=== PATIENT | female | born 1945 | race Caucasian/White ===

== ENCOUNTER → 2016-10-11 | Outpatient (CLI) | payer MEDICARE, OTHER ==
[~2016-10-11] MED LIST: CHOL2000 PO; CYAN50008 PO; DEXL60CA PO; DULO30CA2 PO; DULO60CA7 PO; FENTANYL PF 100 MCG/2ML ONE; HYDR-3138 PO; HYDR25TA11 PO; HYDR25TA6 PO; LATA2.5D3 EACHEYE; LORA0.5T PO; METF500T4 PO; METH750T87 PO; MOME17SP INH; MONT10TA9 PO; MULT-658 PO; OXYcodone 5 MG/5 ML ORAL.SOL UDC ONE; PANT40TA5 PO; TIMO5DRO5 RIGHTEYE; VALS1TAB22 PO; VALS80TA3 PO; ZOLP10TA PO; [UNRECOGNIZED DRUG - OTHER] TP
[2016-10-11 15:01] LABS: ASPARTATE AMINO TRANSFERASE 17 U/L (15-37); BLOOD UREA NITROGEN 14 mg/dL (7-18)
== END | disposition home or self-care (01) ==
LOC: STAR 13:28
PROVIDERS: ATTEND Urology
DX: Z01.818 Encounter for other preprocedural examination (principal); C67.9 Malignant neoplasm of bladder, unspecified; R82.99 Other abnormal findings in urine
CPT/HCPCS: 36415; 80053; 81001; 85025; 87086; 93005

== ENCOUNTER 2016-10-16 13:51 | Day surgery (SDC) | payer MEDICARE, OTHER ==
[~2016-10-16] VITALS: Ht 151.1 cm; Wt 69.5 kg
[~2016-10-16 13:51] MED LIST changes: -FENTANYL PF 100 MCG/2ML ONE; +ONDANSETRON 2MG/ML, 2ML ONE; -OXYcodone 5 MG/5 ML ORAL.SOL UDC ONE; +PROPOFOL 10 MG/ML, 20ML ONE; +ROCURONIUM 10 MG/ML ONE
[2016-10-16] MEDS ORDERED: SODIUM CHLORIDE 0.9% INTVESIC ONE (14:00)
[2016-10-16] MEDS ORDERED: MITOMYCIN INTVESIC ONE (14:00)
[2016-10-16] MEDS ORDERED: LACTATED RINGERS 1,000 ML IV SCH (14:13)
[2016-10-16 14:36] VITALS: BP 146/85
[2016-10-16] MEDS ORDERED: FENTANYL PF 100 MCG/2ML ONE (16:00)
[2016-10-16] MEDS ORDERED: LABETALOL 5MG/ML, 20ML IV PRN (16:30)
[2016-10-16] MEDS ORDERED: ONDANSETRON 2MG/ML, 2ML IVPush PRN (16:30)
[2016-10-16] MEDS ORDERED: HYDROmorphone 1 MG/ML, 1ML IV PRN (16:30)
[2016-10-16] MEDS ORDERED: PROMETHAZINE 25 MG/ML, 1ML IV PRN (16:30)
[2016-10-16] MEDS ORDERED: hydrALAzine 20 MG/ML, 1ML IV PRN (16:30)
[2016-10-16] MEDS ORDERED: FENTANYL PF 100 MCG/2ML IV PRN (16:30)
[2016-10-16] MEDS ORDERED: OXYcodone 5 MG/5 ML ORAL.SOL UDC PO PRN (16:30)
[2016-10-16] MEDS ORDERED: FLUORESCEIN SODIUM 500 MG/5 ML ONE (16:55)
[2016-10-16] MEDS ORDERED: OMNIPAQUE 350 MG/ML, 50 ML BOTTLE INJ ONE (16:58)
[2016-10-16] MEDS ORDERED: OMNIPAQUE 350 MG/ML, 50 ML BOTTLE ONE (17:58)
[2016-10-16] MEDS ORDERED: DIPHENHYDRAMINE 25 MG CAPSULE ONE (19:17)
[2016-10-16] MEDS ORDERED: DIPHENHYDRAMINE 25 MG CAPSULE PO ONE (19:30)
== END 2016-10-16 19:40 ==
LOC: OR 13:51
PROVIDERS: ATTEND Urology
DX: C67.5 Malignant neoplasm of bladder neck (principal); I10 Essential (primary) hypertension; N32.89 Other specified disorders of bladder; E11.9 Type 2 diabetes mellitus without complications; E78.5 Hyperlipidemia, unspecified; Z87.440 Personal history of urinary (tract) infections; Z98.890 Other specified postprocedural states; Z88.5 Allergy status to narcotic agent; Z88.6 Allergy status to analgesic agent
CPT/HCPCS: 52235; 74420; 82962; 88305; J2405; J2704; J3010; J7120; J9280; Q0163; Q9967

== ENCOUNTER → 2017-04-02 | Outpatient (CLI) | payer MEDICARE, OTHER ==
[~2017-04-02] MED LIST changes: -DEXL60CA PO; +DEXL60CA2 PO; -HYDR-3138 PO; +HYDR-3237 PO; -ONDANSETRON 2MG/ML, 2ML ONE; -PROPOFOL 10 MG/ML, 20ML ONE; -ROCURONIUM 10 MG/ML ONE
== END ==
LOC: CFH 07:31
PROVIDERS: ATTEND Genetic Counselor, MS
DX: I10 Essential (primary) hypertension (principal)
CPT/HCPCS: 78452; 93017; A9502